=== PATIENT | female | born 2000 | race African-American/Black ===

== ENCOUNTER 2024-06-15 18:00 | Inpatient (IN) | payer OTHER ==
[2024-06-15] MEDS ORDERED: Lidocaine 1% (PF) 30 ML VIAL SC PRN (21:47)
[2024-06-15] MEDS ORDERED: Promethazine HCl 25 MG/ML VIAL IM PRN (21:47)
[2024-06-15] MEDS ORDERED: Misoprostol 200 MCG TAB PR PRN (21:47)
[2024-06-15] MEDS ORDERED: Carboprost 250 MCG/ML AMP IM PRN (21:47)
[2024-06-15] MEDS ORDERED: Tranexamic Acid 1,000 MG/10 ML VIAL IVP PRN (21:47)
[2024-06-15] MEDS ORDERED: Methylergonovine 0.2 MG/ML VIAL IM PRN (21:47)
[2024-06-15] MEDS ORDERED: Diphenoxylate HCl/Atropine Tablet PO PRN (21:47)
[2024-06-15] MEDS ORDERED: Ondansetron PF 4 MG/2 ML Vial IVP PRN (21:47)
[2024-06-15] MEDS ORDERED: Oxytocin 30 units/NS 500 ML 500 ML IV SCH ×2 (22:00)
[2024-06-15] MEDS: Misoprostol 100 MCG TAB VAG SCH (22:26)
[2024-06-15 22:27] VITALS: BMI 52.3
[2024-06-15 22:43] LABS: #Basophils 0.04 10x3/uL (0.0-0.2); #Eosinophils 0.13 10x3/uL (0.0-0.5); #Monocytes 0.79 10x3/uL (0.0-1.1); #Neutrophils 6.74 10x3/uL (1.5-8.4); %Basophils 0.4 % (0.0-2.0); %Eosinophils 1.4 % (0.0-6.0); %Lymphocytes 18.3 % (18.0-47.0); %Monocytes 8.3 % (0.0-10.0); %Neutrophils 70.8 % (40.0-75.0); Hematocrit 34.8 % (34.9-44.5); Hemoglobin 12.3 g/dL (12.0-15.5); Mean Corpuscular HGB CONC 35.3 g/dL (32.0-36.0); Mean Corpuscular Hemoglobin 30.5 pg (27.0-33.0); Mean Corpuscular Volume 86.4 fL (81.6-98.3); Mean Platelet Volume 11.9 fL (7.4-10.4); Platelet Count 179 10x3/uL (150-450); RBC Distribution Width 13.3 % (11.5-14.5); Red Blood Cell (RBC) Count 4.03 10x6/uL (3.90-5.03); White Blood Cell (WBC) Count 9.52 10x3/uL (3.5-10.5)
[2024-06-15 23:01] LABS: Creatinine, Urine 143.2 mg/dL (16.00-327.00)
[2024-06-15 23:01] LABS: ALT (SGPT) 44 U/L (Less than 34); AST (SGOT) 59 U/L (11-34); Albumin 2.7 g/dL (3.1-4.5); Alkaline Phosphatase 151 U/L (40-110); Anion Gap 15 mmol/L (10-20); BUN (Urea Nitrogen) 7 mg/dL (7.0-18.7); Bilirubin, Total 0.3 mg/dL (0.3-1.2); Calc. Creatinine Clearance 228 mL/min (70-130); Calcium 9.1 mg/dL (7.8-10.44); Carbon Dioxide 16 mmol/L (22-29); Chloride 111 mmol/L (98-107); Estimated GFR 109; Globulin 3.4 g/dL (2.4-3.5); Glucose 72 mg/dL (70-105); Potassium 4.1 mmol/L (3.5-5.1); Protein, Total 6.1 g/dL (6.0-8.3); Sodium 138 mmol/L (136-145)
[2024-06-15 23:21] LABS: HBsAg Index 0.19 S/CO (0-0.99); Hep B Surf Ag - L&D Non-Reactive S/CO (NonReactive)
[2024-06-15 23:23] LABS: Syphilis Antibody Nonreactive (Nonreactive); Syphilis Antibody Index 0.05 S/CO (<1.00 Non-Reactive)
[2024-06-15] MEDS: hydrALAZINE 20 MG/ML VIAL SLOW IVP PRN ×2 (23:26→23:43)
[2024-06-15] MEDS: Magnesium Sulfate 20 gm/500 ml 20 GM/500 ML BAG IVPB SCH (23:43)
[2024-06-15] MEDS ORDERED: Calcium Gluc 4.6 MEQ/10 ML (100 MG/ML) SLOW IVP PRN (23:45)
[2024-06-15] MEDS ORDERED: Labetalol HCl 100 MG/20 ML VIAL SLOW IVP PRN (23:45)
[2024-06-15] MEDS ORDERED: hydrALAZINE 20 MG/ML VIAL SLOW IVP PRN (23:45)
[2024-06-15] MEDS ORDERED: Lorazepam 2 MG/ML VIAL SLOW IVP PRN (23:45)
[2024-06-16] MEDS: Labetalol HCl 100 MG/20 ML VIAL SLOW IVP PRN
[2024-06-16] MEDS ORDERED: FORMOTEROL INH SCH (01:15)
[2024-06-16] MEDS ORDERED: BUDESONIDE INH SCH (01:15)
[2024-06-16] MEDS: Acetaminophen 500 MG TAB PO PRN (05:29)
[2024-06-16] MEDS: Magnesium Sulfate 20 gm/500 ml 20 GM/500 ML BAG IVPB SCH (06:17)
[2024-06-16] MEDS: Magnesium Sulfate 20 gm/500 ml 20 GM/500 ML BAG ONE (07:19)
[2024-06-16] MEDS: Lactated Ringer's 1,000 ML IV SCH (07:19)
[2024-06-16] MEDS: Penicillin G 2.5 MILL.units 2.5 MILL.UNITS in Premix 1 BAG IVPB SCH (07:25)
[2024-06-16] MEDS: Penicillin G Potassium 5 MILL.UNITS in Sodium Chloride 0.9% 100 ML IVPB SCH (09:39)
[2024-06-16] MEDS: Penicillin G Potassium 5 MILL.UNITS VIAL ONE (09:52)
[2024-06-16] MEDS: Acetaminophen 500 MG TAB PO SCH (09:52)
[2024-06-16] MEDS: Oxytocin 30 units/NS 500 ML 500 ML IV SCH (10:53)
[2024-06-16] MEDS ORDERED: Metoclopramide HCl 10 MG (2 mL) VIAL IVP SCH (15:00)
[2024-06-16] MEDS ORDERED: diphenhydrAMINE 50 MG/ML VIAL IVP SCH (15:00)
[2024-06-16] MEDS: Metoclopramide HCl 10 MG (2 mL) VIAL IVP PRN (15:12)
[2024-06-16] MEDS: diphenhydrAMINE 50 MG/ML VIAL IVP PRN (15:12)
[2024-06-16] MEDS ORDERED: diphenhydrAMINE 50 MG/ML VIAL IVP PRN (21:42)
[2024-06-16] MEDS ORDERED: Moisturizing Cream (Eucerin) 113 GM JAR TOP PRN (21:42)
[2024-06-16] MEDS ORDERED: Acetaminophen 325 MG TAB PO PRN (21:42)
[2024-06-16] MEDS ORDERED: Promethazine HCl 25 MG/ML VIAL IM PRN (21:42)
[2024-06-16] MEDS ORDERED: Lactated Ringer's 500 ML IV PRN (21:42)
[2024-06-16] MEDS ORDERED: Ondansetron PF 4 MG/2 ML Vial IVP PRN (21:42)
[2024-06-16] MEDS ORDERED: Naloxone HCl 0.4 mg/ml Vial IVP PRN ×2 (21:42)
[2024-06-16] MEDS ORDERED: ePHEDrine Sulfate 50 MG/10 ML VIAL SLOW IVP PRN (21:42)
[2024-06-16] MEDS ORDERED: fentaNYL 2 mcg/Ropivacaine 0.2% Epidural 100 ML CADD EPIDURAL SCH (21:45)
[2024-06-16] MEDS ORDERED: Communication Order-Pharmacy FS SCH (21:45)
[2024-06-17] MEDS ORDERED: Dextrose 5%-Lactated Ringers 1,000 ML IV SCH (00:15)
[2024-06-17] MEDS ORDERED: Lactated Ringer's 1,000 ML IV SCH (01:00)
[2024-06-17 02:45] LABS: Critical Call Chemistry NUR.AW19@0243; Magnesium 5.5 mg/dL (1.6-2.6)
[2024-06-17] MEDS ORDERED: Bicitra 30 ML UDCUP PO PRN (03:59)
[2024-06-17] MEDS ORDERED: Famotidine/PF 20 mg/2ml Vial SLOW IVP PRN (03:59)
[2024-06-17] MEDS ORDERED: CEFAZOLIN 2 GM in Sodium Chloride 0.9% 100 ML IVPB SCH (04:00)
[2024-06-17] MEDS ORDERED: Azithromycin 500 MG in Sodium Chloride 0.9% 250 ML 250 ML IVPB SCH (04:00)
[2024-06-17] MEDS ORDERED: Naloxone HCl 0.4 mg/ml Vial IVP PRN ×2 (04:08)
[2024-06-17] MEDS ORDERED: fentaNYL 50 mcg/mL 1 mL Vial SLOW IVP PRN (04:08)
[2024-06-17] MEDS ORDERED: Promethazine HCl 25 MG/ML VIAL IM PRN ×2 (04:08→08:08)
[2024-06-17] MEDS ORDERED: Ondansetron PF 4 MG/2 ML Vial IVP PRN ×2 (04:08)
[2024-06-17] MEDS ORDERED: Naloxone HCl 0.4 mg/ml Vial IV PRN (04:08)
[2024-06-17] MEDS ORDERED: diphenhydrAMINE 50 MG/ML VIAL IVP PRN (04:08)
[2024-06-17] MEDS ORDERED: Moisturizing Cream (Eucerin) 113 GM JAR TOP PRN (04:08)
[2024-06-17] MEDS ORDERED: Meperidine HCl/PF 25 MG (1 mL) VIAL SLOW IVP PRN (04:08)
[2024-06-17] MEDS ORDERED: HYDROmorphone 0.5 MG/0.5 ML SYRINGE SLOW IVP PRN (04:08)
[2024-06-17] MEDS ORDERED: Communication Order-Pharmacy FS SCH (04:15)
[2024-06-17 05:07] LABS: Analyzer IN Cardio CS NICU; RapidComm Collect By RN
[2024-06-17 05:08] LABS: Analyzer IN Cardio CS NICU; RapidComm Collect By RN; pH (Cord, venous) 7.286 (7.250-7.350)
[2024-06-17] MEDS ORDERED: Lorazepam 2 MG/ML VIAL SLOW IVP PRN (07:33)
[2024-06-17] MEDS ORDERED: hydrALAZINE 20 MG/ML VIAL SLOW IVP PRN ×3 (07:33→08:08)
[2024-06-17] MEDS ORDERED: Labetalol HCl 100 MG/20 ML VIAL SLOW IVP PRN ×2 (07:33)
[2024-06-17] MEDS ORDERED: Calcium Gluc 4.6 MEQ/10 ML (100 MG/ML) SLOW IVP PRN (07:33)
[2024-06-17] MEDS: Labetalol HCl 100 MG/20 ML VIAL SLOW IVP SCH (07:38)
[2024-06-17] MEDS ORDERED: Magnesium Sulfate 20 gm/500 ml 20 GM/500 ML BAG IVPB SCH (07:45)
[2024-06-17] MEDS ORDERED: Bisacodyl 10 MG SUPP PR PRN (08:08)
[2024-06-17] MEDS ORDERED: Simethicone Chewable 80 MG TAB PO PRN (08:08)
[2024-06-17] MEDS ORDERED: Acetaminophen 325 MG TAB PO PRN (08:08)
[2024-06-17] MEDS ORDERED: Oxytocin 30 units/NS 500 ML 500 ML IV SCH (08:08)
[2024-06-17] MEDS ORDERED: Lanolin Ointment 7 GM TUBE TOP PRN (08:08)
[2024-06-17] MEDS ORDERED: Boostrix 0.5 ML (Tdap) VIAL (>/=7 yrs of age) IM ONE (08:08)
[2024-06-17] MEDS: Labetalol HCl 200 MG TAB PO SCH (10:15)
[2024-06-17] MEDS: Docusate 100 MG CAP PO SCH (10:16)
[2024-06-17] MEDS: Ferrous Sulfate 325 MG TAB PO SCH (10:16)
[2024-06-17] MEDS: Lidocaine 2% MPF 10 ML AMP (For Epidural Use) ONE (10:55)
[2024-06-17] MEDS: Azithromycin 500 MG VIAL ONE (10:55)
[2024-06-17] MEDS: Famotidine/PF 20 mg/2ml Vial ONE (10:55)
[2024-06-17] MEDS: CEFAZOLIN 2 GM VIAL ONE (10:55)
[2024-06-17] MEDS: Ketorolac Tromethamine 30 MG (1 mL) VIAL ONE (10:55)
[2024-06-17] MEDS: Dexamethasone 10 MG/ML VIAL ONE (10:55)
[2024-06-17] MEDS: Morphine PF 10 MG/10 ML VIAL ONE (10:56)
[2024-06-17] MEDS: Ondansetron PF 4 MG/2 ML Vial ONE (10:56)
[2024-06-17] MEDS: Dexmedetomidine 200 MCG/2 ML VIAL ONE (10:56)
[2024-06-17] MEDS: Oxytocin 10 UNITS/ML VIAL ONE ×2 (10:56)
[2024-06-17] MEDS: Tranexamic Acid 1,000 MG/10 ML VIAL ONE (10:56)
[2024-06-17] MEDS: Prenatal Vitamin 1 TAB PO SCH (10:57)
[2024-06-17] MEDS: Ketorolac Tromethamine 30 MG (1 mL) VIAL IVP PRN (11:03)
[2024-06-17] MEDS: Magnesium Sulfate 20 gm/500 ml 20 GM/500 ML BAG IVPB SCH (12:34)
[2024-06-17] MEDS: diphenhydrAMINE 25 MG CAP PO PRN (15:13)
[2024-06-17] MEDS: Ondansetron PF 4 MG/2 ML Vial IVP PRN (16:01)
[2024-06-17] MEDS: Enoxaparin 40 MG (0.4 mL) SYRINGE SC SCH (22:34)
[2024-06-18 05:31] LABS: Hematocrit 32.2 % (34.9-44.5); Hemoglobin 10.8 g/dL (12.0-15.5); Mean Corpuscular HGB CONC 33.5 g/dL (32.0-36.0); Mean Corpuscular Hemoglobin 29.8 pg (27.0-33.0); Mean Corpuscular Volume 88.7 fL (81.6-98.3); Mean Platelet Volume 11.2 fL (7.4-10.4); Platelet Count 165 10x3/uL (150-450); RBC Distribution Width 13.7 % (11.5-14.5); Red Blood Cell (RBC) Count 3.63 10x6/uL (3.90-5.03); White Blood Cell (WBC) Count 15.31 10x3/uL (3.5-10.5)
[2024-06-18] MEDS: HYDROcodone/Acetaminophen 5/325 mg Tablet PO PRN (10:58)
[2024-06-18] MEDS: Ibuprofen 800 MG TAB PO SCH (13:58)
[2024-06-18] MEDS: fentaNYL/Ropivacaine Epidural 100 ML ONE (19:26)
[2024-06-18] MEDS ORDERED: Labetalol HCl 100 MG/20 ML VIAL SLOW IVP PRN ×3 (20:28)
[2024-06-18] MEDS ORDERED: hydrALAZINE 20 MG/ML VIAL SLOW IVP PRN (20:28)
[2024-06-18] MEDS: Labetalol HCl 200 MG TAB PO SCH (21:02)
[2024-06-18] MEDS: Labetalol HCl 100 MG TAB PO SCH (23:48)
[2024-06-19] MEDS: Labetalol HCl 200 MG TAB PO SCH (08:36)
[2024-06-19] MEDS ORDERED: Labetalol HCl 200 MG TAB PO SCH (09:00)
[2024-06-19 16:14] VITALS: BP 142/82; TEMP 98.3
== END 2024-06-19 18:00 | disposition home or self-care (01) | DRG 788 ==
LOC: CSHLD 21:10 → CSHPED 06-18 05:55
PROVIDERS: ADMIT Family Medicine; ATTEND Family Medicine
PROC: 10H07YZ Insertion of Other Device into Products of Conception, Via Natural or Artificial Opening (ICD-10-PCS; principal; 2024-06-16)
PROC: 10D00Z1 Extraction of Products of Conception, Low, Open Approach (ICD-10-PCS; 2024-06-17)
DX: O11.4 Pre-existing hypertension with pre-eclampsia, complicating childbirth (principal); O99.52 Diseases of the respiratory system complicating childbirth; O99.824 Streptococcus B carrier state complicating childbirth; O36.63X0 Maternal care for excessive fetal growth, third trimester, not applicable or unspecified; O99.02 Anemia complicating childbirth; J45.20 Mild intermittent asthma, uncomplicated; Z3A.37 37 weeks gestation of pregnancy; Z37.0 Single live birth; Z79.899 Other long term (current) drug therapy; Z79.82 Long term (current) use of aspirin; O76 Abnormality in fetal heart rate and rhythm complicating labor and delivery; O99.214 Obesity complicating childbirth
CPT/HCPCS: 36415; 36416; 80053; 82570; 82805; 83735; 84156; 85027; 86780; 86850; 86900; 86901; 87340; J0360; J1100; J1200; J1650; J1885; J2274; J2405; J2540; J2590; J2765; J3475; J3490; J7120